=== PATIENT | male | born 1990 | race Caucasian/White ===

== ENCOUNTER 2020-07-13 09:54 | Emergency (ER) | payer OTHER ==
[~2020-07-13] VITALS: Ht 180.3 cm; Wt 83.5 kg
--- NOTE | 2020-07-13 09:56 | NUR ---
[id number] HOME, SEVERE BACK PAIN, UNABLE TO STAND UP SINCE LAST NIGHT GIVEN 100MCG [facility] IVP GIVEN SANITARIAN. NO RECENT INJURY , TO ER BED 11, HOOKED TO BP CUFF AND POX, CHANGED TO HOSP GOWN, WARM BLANKET PROVIDED, PATIENT AAO x 4, BREATHING EVEN AND UNLABORED. DR MEDRANO AT BEDSIDE.
[2020-07-13] MEDS ORDERED: HYDROCODONE/APAP 5/325MG TABLET ONE (11:43)
--- NOTE | 2020-07-13 11:49 | NUR ---
Patient discharged to home in stable condition. Written and verbal after care instructions given. Patient verbalizes understanding of instruction. Picked up by girlfriend in the waiting room.
[2020-07-13 11:52] VITALS: BP 121/68
[2020-07-13] MEDS ORDERED: HYDROCODONE/APAP 5/325MG TABLET PO ONE (12:00)
== END 2020-07-13 11:53 | disposition home or self-care (01) ==
LOC: ER 10:04
DX: M51.26 Other intervertebral disc displacement, lumbar region (principal); Z98.890 Other specified postprocedural states
CPT/HCPCS: 72131-TC